=== PATIENT | male | born 1985 | race Caucasian/White ===

== ENCOUNTER 2020-12-11 21:36 | Emergency (ER) | payer OTHER ==
[~2020-12-11] VITALS: Ht 170.2 cm; Wt 55.8 kg
[2020-12-11 21:58] LABS: Source, Urine Clean Catch
[2020-12-11 22:01] LABS: Bilirubin, Urine Neg (Neg); Blood, Urine Neg (Neg); Glucose Qualitative, Urine Neg (Neg); Ketones, Urine 2+ (Neg); Leukocyte Esterase, Urine Neg (Neg); Nitrite, Urine Neg (Neg); Protein, Urine Neg (Neg); Urobilinogen, Urine NORM (Normal)
[2020-12-11 22:05] LABS: Appearance, Urine Clear (Clear); Color, Urine Yellow (P-Yellow)
== END 2020-12-11 23:48 | disposition home or self-care (01) ==
LOC: ER 21:36
PROVIDERS: Physician Assistant
DX: S39.011A Strain of muscle, fascia and tendon of abdomen, initial encounter (principal); X58.XXXA Exposure to other specified factors, initial encounter
CPT/HCPCS: 76870; 81003; 99284-25